=== PATIENT | female | born 1995 | race Caucasian/White ===

== ENCOUNTER 2017-03-13 16:16 | Emergency (ER) | payer BC, OTHER ==
[2017-03-13] MEDS ORDERED: KETOROLAC 30 MG/ML VIAL IVP ONE (16:51)
[2017-03-13] MEDS ORDERED: ONDANSETRON HCL IV 4 MG/2 ML VIAL IV ONE (16:51)
[2017-03-13] MEDS ORDERED: 0.9 % SODIUM CHLORIDE 1,000 ML BAG IV ONE (16:51)
[2017-03-13 17:28] LABS: HEMOGLOBIN 11.2 gm/dl (11.6-16.0); MEAN CELL VOLUME 75.9 fl (81-97); MEAN CORPUSCULAR HEMOGLOBIN 23.6 pg (27-33); MEAN CORPUSCULAR HGB CONC 31.1 g/dl (32-36); MEAN PLATELET VOLUME 8.9 fl (7.4-10.4); PLATELET COUNT 277 K/uL (130-400); RED BLOOD COUNT 4.74 M/uL (3.80-5.40); RED CELL DISTRIBUTION WIDTH 17.3 % (11.5-14.5); URINE APPEARANCE CLEAR; URINE BILIRUBIN NEGATIVE (NEGATIVE); URINE BLOOD MODERATE (NEGATIVE); URINE COLOR YELLOW; URINE GLUCOSE (UA) NEGATIVE (NEGATIVE); URINE KETONE NEGATIVE (NEGATIVE); URINE LEUKOCYTE ESTERASE NEGATIVE (NEGATIVE); URINE NITRITE NEGATIVE (NEGATIVE); URINE PROTEIN NEGATIVE (NEGATIVE); URINE UROBILINOGEN 0.2 E.U./dL (0.20 - 1.00); WHITE BLOOD COUNT W/O DIFF 6.2 K/uL (4.2-12.2)
[2017-03-13 17:31] LABS: HCG,QUALITATIVE URINE NEGATIVE (NEGATIVE)
[2017-03-13 17:38] LABS: ALB/GLOB RATIO 1.3 (1.1-1.8); ALBUMIN 4.4 gm/dL (3.5-5.0); ALKALINE PHOSPHATASE 95 U/L (38-126); ALT/SGPT 45 U/L (9-52); ANION GAP 9.2 (7-16); AST/SGOT 33 U/L (14-36); BILIRUBIN,TOTAL 0.36 mg/dL (0.2-1.3); BLOOD UREA NITROGEN 13 mg/dL (7-17); CARBON DIOXIDE 24.8 mmol/L (22-30); CREATININE 0.7 mg/dL (0.52-1.04); EST GLOMERULAR FILTRATION RATE > 60 ml/min; GLUCOSE,RANDOM 83 mg/dL (70-110); LIPASE 70 U/L (23-300); TOTAL PROTEIN 7.9 gm/dL (6.3-8.2)
[2017-03-13 17:39] LABS: URINE BACTERIA 1+; URINE RBC 16 - 25 (NONE SEEN); URINE SQUAMOUS EPITHELIAL CELL 16 - 20 /hpf; URINE WBC 0 - 2 (0-2/hpf)
[2017-03-13] MEDS ORDERED: HYDROMORPHONE HCL 1 MG/ML CPJ IVP ONE (17:45)
--- NOTE | 2017-03-13 17:54 | Emergency Department Record ---
History of Present Illness - General Chief Complaint: Abdominal Pain Stated Complaint: ABD PAIN Time Seen by Provider: 03/13/17 16:44 Source: Patient Mode of Arrival: Ambulatory Limitations: No limitations - History of Present Illness Initial Comments: pt has had n/v/d and abd pain for 3 days. pn waxes and wanes and is severe at times. pt has been taking antidiarrheal medication. pt works at an extended care facility. MD Complaint: Abdominal pain Onset/Timin -: Days(s) Location: Periumbilical Radiation: None Migration to: No migration Severity: Moderate Quality: Cramping Consistency: Constant Improves With: Bowel movement Worsens With: Eating Context: Other Associated Symptoms: Diarrhea, Nausea, Vomiting - Related Data LMP (females 10-50): Current Patient : No Home Medications Medication Instructions Recorded Confirmed Last Taken Dextroamphetamine/Amphetamine 20 mg PO DAILY 03/13/17 03/13/17 03/13/17 [Adderall 20 mg Tablet] Modafinil [Provigil] 200 mg PO DAILY 03/13/17 03/13/17 03/13/17 Montelukast Sodium [Singulair] 10 mg PO DAILY 03/13/17 03/13/17 03/13/17 Omeprazole/Sodium Bicarbonate 40 mg PO BID 03/13/17 03/13/17 03/13/17 [Zegerid 40 mg Capsule] Sertraline HCl [Zoloft] 50 mg PO DAILY 03/13/17 03/13/17 03/13/17 Previous Rx's Medication Instructions Recorded Promethazine HCl [Phenergan] 12.5 mg PO BID #10 tablet 03/13/17 Allergies Allergy/AdvReac Type Severity Reaction Status Date / Time amoxicillin [From Augmentin] Allergy HIVES Verified 03/13/17 16:48 azithromycin Allergy HIVES Verified 03/13/17 16:48 clavulanic acid Allergy HIVES Verified 03/13/17 16:48 [From Augmentin] erythromycin base Allergy HIVES Verified 03/13/17 16:48 Penicillins Allergy HIVES Verified 03/13/17 16:48 sulfamethoxazole Allergy HIVES Verified 03/13/17 16:48 [From Bactrim] trimethoprim [From Bactrim] Allergy HIVES Verified 03/13/17 16:48 Travel Screening - Travel/Exposure Within Last 30 Days Have you traveled within the last 30 days?: No - Travel/Exposure Within Last Year Have you traveled outside the [place] in the last year?: No - Additonal Travel Details Have you been exposed to anyone with a communicable illness?: No - Travel Symptoms Symptom Screening: None Review of Systems Reviewed: No additional complaints except as noted below Constitutional: Reports: As per HPI. Denies: Chills, Fever, Malaise, Night sweats, Weakness, Weight change Eyes: Reports: As per HPI. Denies: Eye discharge, Eye pain, Photophobia, Vision change ENT: Reports: As per HPI. Denies: Congestion, Dental pain, Ear pain, Epistaxis , Hearing loss, Throat pain Respiratory: Reports: As per HPI. Denies: Cough, Dyspnea, Hemoptysis, Stridor, Wheezes Cardiovascular: Reports: As per HPI. Denies: Arrhythmia, Chest pain, Dyspnea on exertion, Edema, Murmurs, Orthopnea, Palpitations, Paroxysmal nocturnal dyspnea, Rheumatic Fever, Syncope Endocrine: Reports: As per HPI. Denies: Fatigue, Heat or cold intolerance, Polydipsia, Polyuria Gastrointestinal: Reports: As per HPI. Denies: Abdominal pain, Constipation, Diarrhea, Hematemesis, Hematochezia, Melena, Nausea, Vomiting Genitourinary: Reports: As per HPI. Denies: Abnormal menses, Discharge, Dyspareunia, Dysuria, Frequency, Hematuria, Incontinence, Retention, Urgency Musculoskeletal: Reports: As per HPI. Denies: Arthralgia, Back pain, Gout, Joint swelling, Myalgia, Neck pain Skin: Reports: As per HPI. Denies: Bruising, Change in color, Change in hair/ nails, Lesions, Pruritus, Rash Neurological: Reports: As per HPI. Denies: Abnormal gait, Confusion, Headache, Numbness, Paresthesias, Seizure, Tingling, Tremors, Vertigo, Weakness Psychiatric: Reports: As per HPI. Denies: Anxiety, Auditory hallucinations, Depression, Homicidal thoughts, Suicidal thoughts, Visual hallucinations Hematological/Lymphatic: Reports: As per HPI. Denies: Anemia, Blood Clots, Easy bleeding, Easy bruising, Swollen glands Past Medical History - SOCIAL HISTORY Smoking Status: Never smoker Alcohol Use: Rare Drug Use: None - RESPIRATORY Hx Respiratory Disorders: Yes Hx Asthma: Yes Comment:: Sports induced Asthma Highly allergic - CARDIOVASCULAR Hx Cardio Disorders: No - NEURO Hx Neuro Disorders: Yes Hx Headaches: Yes Comment:: Narcolepsy - GI Hx GI Disorders: Yes Hx Reflux: Yes Hx Irritable Bowel: Yes - Hx Genitourinary Disorders: No - ENDOCRINE Hx Endocrine Disorders: No Hx Diabetes: No Hx Thyroid Disease: No - MUSCULOSKELETAL Hx Arthritis: No - PSYCH Hx Psych Problems: No - HEMATOLOGY/ONCOLOGY Hx Hematology/Oncology Disorders: No Family Medical History Any Significant Family History?: Yes Hx Cancer: Grandparents Hx Heart Disease: Grandparents Physical Exam - General General Appearance: Alert, Oriented x3, Cooperative, Mild distress - Head Head exam: Normal inspection - Eye Eye exam: Normal appearance, PERRL, EOMI Pupils: Normal accommodation - ENT ENT exam: Normal exam, Mucous membranes moist, Normal external ear exam, Normal orophraynx, TM's normal bilaterally Ear exam: Normal external inspection. negative: External canal tenderness Nasal Exam: Normal inspection. negative: Discharge, Sinus tenderness Mouth exam: Normal external inspection, Tongue normal Teeth exam: Normal inspection. negative: Dental caries Throat exam: Normal inspection. negative: Tonsillar erythema, Tonsillar exudate - Neck Neck exam: Normal inspection, Full ROM. negative: Tenderness - Respiratory Respiratory exam: Normal lung sounds bilaterally. negative: Respiratory distress - Cardiovascular Cardiovascular Exam: Regular rate, Normal rhythm, Normal heart sounds - GI/Abdominal GI/Abdominal exam: Soft, Normal bowel sounds, Tenderness - Rectal Rectal exam: Deferred - exam: Deferred - Extremities Extremities exam: Normal inspection, Full ROM, Normal capillary refill. negative: Tenderness - Back Back exam: Reports: Normal inspection, Full ROM. Denies: Muscle spasm, Rash noted, Tenderness - Neurological Neurological exam: Alert, CN II-XII intact, Normal gait, Oriented X3 - Psychiatric Psychiatric exam: Normal affect, Normal mood - Skin Skin exam: Dry, Intact, Normal color, Warm Course Vital Signs 03/13/17 16:21 Temperature 99 F Pulse Rate 84 Respiratory 18 Rate Blood Pressure 135/85 Pulse Ox 100 - Reevaluation(s) Reevaluation #1: 03/13/17 19:05 pt feels better Medical Decision Making - Lab Data Result diagrams: 03/13/17 17:15 03/13/17 17:15 Lab Results 03/13/17 03/13/17 03/13/17 Range/Units 17:15 17:15 17:15 WBC 6.2 (4.2-12.2) K/uL RBC 4.74 (3.80-5.40) M/uL Hgb 11.2 L (11.6-16.0) gm/dl Hct 36.0 (35.0-47.0) % MCV 75.9 L (81-97) fl MCH 23.6 L (27-33) pg MCHC 31.1 L (32-36) g/dl RDW 17.3 H (11.5-14.5) % Plt Count 277 (130-400) K/uL MPV 8.9 (7.4-10.4) fl Eosinophils % Not Reportable Basophils % Not Reportable Sodium 140 (136-145) mmol/L Potassium 3.4 L (3.5-5.1) mmol/L Chloride 106 (98-107) mmol/L Carbon Dioxide 24.8 (22-30) mmol/L Anion Gap 9.2 (7-16) BUN 13 (7-17) mg/dL Creatinine 0.7 (0.52-1.04) mg/dL Estimated GFR > 60 ml/min Random Glucose 83 (70-110) mg/dL Calcium 8.9 (8.5-10.1) mg/dL Total Bilirubin 0.36 (0.2-1.3) mg/dL AST 33 (14-36) U/L ALT 45 (9-52) U/L Alkaline Phosphatase 95 (38-126) U/L Total Protein 7.9 (6.3-8.2) gm/dL Albumin 4.4 (3.5-5.0) gm/dL Globulin 3.5 (1.4-4.8) gm/dL Albumin/Globulin Ratio 1.3 (1.1-1.8) Lipase 70 (23-300) U/L Urine Color Yellow Urine Appearance Clear Urine pH 6.5 (5.0-8.0) Ur Specific [place] 1.020 (1.002-1.030) Urine Protein Negative (NEGATIVE) Urine Glucose (UA) Negative (NEGATIVE) Urine Ketones Negative (NEGATIVE) Urine Blood Moderate (NEGATIVE) Urine Nitrite Negative (NEGATIVE) Urine Bilirubin Negative (NEGATIVE) Urine Urobilinogen 0.2 (0.20 - 1.00) E.U./dL Ur Leukocyte Esterase Negative (NEGATIVE) Urine RBC 16 - 25 (NONE SEEN) Urine WBC 0 - 2 (0-2/hpf) U Non-Squamous Epi Cells 16 - 20 /hpf Urine Bacteria 1+ Urine HCG, Qual Negative (NEGATIVE) Disposition Disposition: Discharge Clinical Impression: Vomiting Qualifiers: Vomiting type: unspecified Vomiting Intractability: non-intractable Nausea presence: with nausea Qualified Code(s): R11.2 - Nausea with vomiting, unspecified Diarrhea Qualifiers: Diarrhea type: unspecified type Qualified Code(s): R19.7 - Diarrhea, unspecified Abdominal pain Qualifiers: Abdominal location: lower abdomen, unspecified Qualified Code(s): R10.30 - Lower abdominal pain, unspecified Disposition: Home, Self-Care Condition: (1) Good Instructions: Acute Nausea and Vomiting (ED), Acute Diarrhea (ED), Abdominal Pain (ED) Additional Instructions: follow up with family doctor. return sooner if worse. push fluids Prescriptions: Promethazine HCl [Phenergan] 12.5 mg PO BID #10 tablet Forms: Patient Portal Access
[2017-03-13] MEDS ORDERED: DICYCLOMINE HCL 10 MG/ML AMPUL IM ONE (19:06)
[2017-03-13] MEDS ORDERED: PROMETHAZINE HCL 25 MG/ML VIAL IVP ONE (19:07)
--- NOTE | 2017-03-16 08:54 | CT SCAN REPORT ---
EXAM: CT OF THE ABDOMEN AND PELVIS WITHOUT CONTRAST HISTORY: LOWER ABDOMINAL PAIN. TECHNIQUE: Sequential axial images were obtained from the diaphragms through the ischiorectal fossa without intravenous or oral contrast administration. FINDINGS: The visualized lung bases appear normal. The nonopacified liver, gallbladder, pancreas, and spleen appear normal. The adrenal glands and kidneys appear normal. No CT findings suggestive of obstructive uropathy. No evidence of bowel obstruction. The appendix is visualized and appears normal. There is liquid stool throughout the colon. No evidence of free air. No gross abnormalities within the urinary bladder. The osseous structures are normal. IMPRESSION: THE APPENDIX IS VISUALIZED AND APPEARS NORMAL. LIQUIFIED STOOL IN THE COLON. NO EVIDENCE OF OBSTRUCTION. NO OBSTRUCTIVE UROPATHY. JOB NUMBER: [id number] MTDD
== END 2017-03-13 19:40 | disposition home or self-care (01) ==
LOC: ER 16:16
DX: R10.33 Periumbilical pain (principal); R11.2 Nausea with vomiting, unspecified; R19.7 Diarrhea, unspecified
CPT/HCPCS: 99284 ×2; 96374; 96372; 96375; 96361; 83690; 80053; 81001; 81025; 85027; 74176; J1885; J2405; J1170; J2550; J7030

== ENCOUNTER 2017-04-15 19:56 | Emergency (ER) | payer OTHER ==
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
[2017-04-15] MEDS: NAPROXEN 250 MG TABLET PO ONE ×2 (21:08→21:45)
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
== END 2017-04-15 21:49 | disposition home or self-care (01) ==
LOC: ER 19:56
DX: S60.012A Contusion of left thumb without damage to nail, initial encounter (principal); S90.01XA Contusion of right ankle, initial encounter; S10.93XA Contusion of unspecified part of neck, initial encounter; V89.2XXA Person injured in unspecified motor-vehicle accident, traffic, initial encounter
CPT/HCPCS: 72125; 99283; 99284

== ENCOUNTER 2017-05-18 07:04 | Day surgery (SDC) | payer OTHER ==
[~2017-05-18 07:04] MED LIST: ACETAMINOPHEN 1,000 MG/100 ML BTL IV ONE; FAMOTIDINE 20MG TABLET PO ONE; MECLIZINE 25 MG TABLET PO ONE; METOCLOPRAMIDE 10 MG TABLET PO ONE
[2017-05-18] MEDS ORDERED: HYDROCODONE/APAP 5/325MG TABLET PO ONE (13:54)
[2017-05-18] MEDS ORDERED: HYDROMORPHONE HCL 2 MG/ML VIAL IV ONE (13:54)
[2017-05-18] MEDS ORDERED: ROCURONIUM BROMIDE 50MG/5ML VIAL IV ONE (14:00)
[2017-05-18] MEDS ORDERED: MIDAZOLAM HCL 2MG/2ML VIAL IV ONE (14:00)
[2017-05-18] MEDS ORDERED: KETOROLAC 30 MG/ML VIAL IVP ONE (14:00)
[2017-05-18] MEDS ORDERED: DEXAMETHASONE 4 MG/ML 1ML VIAL IVP ONE (14:00)
[2017-05-18] MEDS ORDERED: SUGAMMADEX SODIUM 200 MG/2 ML VIAL IV ONE (14:00)
[2017-05-18] MEDS ORDERED: LIDOCAINE 2% MDV (20MG/ML) 20ML VIAL IV ONE (14:00)
[2017-05-18] MEDS ORDERED: ONDANSETRON HCL IV 4 MG/2 ML VIAL IVP ONE (14:00)
[2017-05-18] MEDS ORDERED: SEVOFLURANE 250 ML INH ONE (14:00)
[2017-05-18] MEDS ORDERED: MORPHINE SULFATE 5 MG/ML PFS IVP ONE (14:00)
[2017-05-18] MEDS ORDERED: PROPOFOL 10 MG/ML VIAL IV ONE (14:00)
[2017-05-18] MEDS ORDERED: LABETALOL HCL 5MG/ML, 20ML VIAL IVPB ONE (14:00)
[2017-05-18] MEDS ORDERED: BUPIVACAINE 0.25% W/EPI MPF 30ML VIAL IVP ONE (14:46)
--- NOTE | 2017-05-21 10:40 | Operative Note ---
DATE OF SURGERY: 05/18/2017 Surgeon: Juan Lambert DO PREOPERATIVE DIAGNOSIS: Cholelithiasis, chronic cholecystitis. POSTOPERATIVE DIAGNOSIS: Cholelithiasis, chronic cholecystitis. OPERATION: Laparoscopic cholecystectomy. Indication: The patient is a 21-year-old female who is having ongoing right subcostal postprandial pain. Imaging studies did reveal cholelithiasis without evidence of acute cholecystitis. We did discuss cholecystectomy versus medical management. She desired surgical intervention. Risks include but are not limited to bleeding, infection, ductal injury, possible conversion to open, postoperative bile leak. She understood this fully. Thereafter, consent signed, questions answered. PROCEDURE: The patient was taken to the operating room and placed in a supine position. General anesthesia was administered per the department of anesthesia. The patient's abdomen was prepped and draped in the usual fashion. The infraumbilical region was anesthetized with a total of 5 mL of 0.25% Sensorcaine with epinephrine. A 2 cm infraumbilical incision was made. This was carried down bluntly to the anterior rectus fascia. This was incised. Trent clamps were placed on the fascial edges and brought up into the wound. Stay sutures of 0 Vicryl were placed. Posterior rectus sheath was identified and incised. The peritoneal cavity was entered bluntly. At this time a 10 mm blunt Mily port was placed. Adequate pneumoperitoneum was established. Under direct visualization, additional 5 mm epigastric and two 5 mm right subcostal ports were placed. The patient was rotated to reverse Trendelenburg with rotation to the left. The gallbladder was identified and retracted in a cephalad and lateral direction over the angle of Calot. The hepatocystic triangle was thoroughly dissected out. There was no aberrant anatomy, no posterior ductal structures. The cystic duct and cystic artery were clearly identified. The cystic artery was taken down with the Mika harmonic. The cystic duct was triply clipped and cut in a standard fashion. Gallbladder was then taken off the liver bed with Mika harmonic. This was extracted infraumbilically. Right upper quadrant was rechecked and found to be hemostatic. No bleeding. No bile leak. No bowel injury noted. The patient was leveled out. The pneumoperitoneum was released. All ports were removed. The fascia was closed with 0 Vicryl in a [id number] fashion. The skin at all 4 ports was closed with 4-0 Vicryl. She was taken to the recovery room in satisfactory condition. FINDINGS AT THE TIME OF SURGERY: Chronic cholecystitis. Of note, the patient did have a distended, thickened gallbladder with a thickened wall, cholelithiasis consistent with chronic cholecystitis. CC: Dr. Gail PEREZ
== END 2017-05-18 11:35 | disposition home or self-care (01) ==
LOC: SUR 07:04
PROVIDERS: ATTEND Surgery
DX: K80.44 Calculus of bile duct with chronic cholecystitis without obstruction (principal); G47.419 Narcolepsy without cataplexy; F41.8 Other specified anxiety disorders
CPT/HCPCS: 81025; 47562; 00790; J1885; J2405; J1170; J2270; J3490

== ENCOUNTER 2017-12-18 07:21 | Emergency (ER) | payer OTHER ==
[2017-12-18] MEDS ORDERED: 0.9 % SODIUM CHLORIDE 1,000 ML BAG IV ONE (07:31)
[2017-12-18] MEDS ORDERED: ONDANSETRON HCL IV 4 MG/2 ML VIAL IV ONE (07:31)
[2017-12-18] MEDS ORDERED: ACETAMINOPHEN 1,000 MG/100 ML BTL IVPB ONE (07:37)
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
[2017-12-18] MEDS ORDERED: PANTOPRAZOLE SODIUM IV 40 MG VIAL IVP ONE (07:38)
[2017-12-18] MEDS ORDERED: ONDANSETRON 4 MG ODT TABLET SL ONE (08:03)
[2017-12-18] MEDS ORDERED: KETOROLAC 30 MG/ML VIAL IM ONE (08:05)
[2017-12-18 08:30] LABS: BASO % 0.5 % (0-6); EOS % 1.7 % (0-6); GRAN % 52.9 % (47-80); HEMATOCRIT 35.8 % (35.0-47.0); HEMOGLOBIN 10.7 gm/dl (11.6-16.0); LYMPH % 34.3 % (16-45); MEAN CORPUSCULAR HGB CONC 29.9 g/dl (32-36); MEAN PLATELET VOLUME 9.4 fl (7.4-10.4); MONO % 10.6 % (0-9); PLATELET COUNT 308 K/uL (130-400); RED BLOOD COUNT 4.65 M/uL (3.80-5.40); RED CELL DISTRIBUTION WIDTH 16.1 % (11.5-14.5); WHITE BLOOD COUNT W/O DIFF 5.8 K/uL (4.2-12.2)
[2017-12-18 08:39] LABS: BILIRUBIN,TOTAL < 0.20 mg/dL (0.2-1.0); BLOOD UREA NITROGEN 14 mg/dL (6-20); CREATININE 0.5 mg/dL (0.5-0.9); EST GLOMERULAR FILTRATION RATE > 60 mL/min
[2017-12-18 08:42] LABS: GLUCOSE,RANDOM 89 mg/dL (74-109)
[2017-12-18 08:44] LABS: ALT/SGPT 21 U/L (<33); AST/SGOT 15 U/L (10.0-35.0)
[2017-12-18 08:45] LABS: ALB/GLOB RATIO 1.5 (1.1-1.8); ALBUMIN 4.2 g/dL (4.0-5.0); ALKALINE PHOSPHATASE 81 U/L (35-104); LIPASE 41 U/L (13-60)
[2017-12-18 09:11] LABS: URINE APPEARANCE CLOUDY; URINE BILIRUBIN NEGATIVE (NEGATIVE); URINE BLOOD NEGATIVE (NEGATIVE); URINE COLOR YELLOW; URINE GLUCOSE (UA) NEGATIVE (NEGATIVE); URINE KETONE NEGATIVE (NEGATIVE); URINE LEUKOCYTE ESTERASE NEGATIVE (NEGATIVE); URINE NITRITE NEGATIVE (NEGATIVE); URINE PROTEIN TRACE (NEGATIVE); URINE UROBILINOGEN 0.2 E.U./dL (0.20 - 1.00)
[2017-12-18] MEDS ORDERED: 0.9 % SODIUM CHLORIDE 1000ML 1,000 ML IV ONE (09:23)
[2017-12-18] MEDS ORDERED: MORPHINE SULFATE 5 MG/ML PFS IVP ONE (10:23)
[2017-12-18] MEDS ORDERED: FENTANYL PF 100MCG/2ML VIAL IVP ONE (10:26)
--- NOTE | 2017-12-19 21:35 | CT SCAN REPORT ---
EXAM: CT SCAN ABDOMEN/PELVIS W CONTRAST HISTORY: ABDOMINAL TENDERNESS IN THE MID ABDOMEN AND RIGHT LOWER QUADRANT WITH NAUSEA AND LOW-GRADE FEVER FOR THREE DAYS. CHOLECYSTECTOMY. TECHNIQUE: Axial CT scan of the abdomen and pelvis performed following both oral or IV contrast administration utilizing a dose of 100 mL of Omnipaque-300 as the IV contrast. COMPARISON: CT abdomen/pelvis without contrast 03/13/17. FINDINGS: Gallbladder not identified consistent with the surgical history. No definite hepatic, splenic, adrenal, pancreatic, or renal mass identified. Oral contrast given has passed throughout the small bowel and into the proximal colon with no small bowel obstruction evident. Appendix appears negative with no appendicitis evident. Minor dependent atelectasis in both lung bases posteriorly. No free intraperitoneal air or free intraperitoneal fluid identified. There is some mild spurring posteriorly at the L1-2 interspace. This was present previously as well. Note is made that the urinary bladder is relatively distended. IMPRESSION: 1. POST-OP CHOLECYSTECTOMY. 2. NO APPENDICITIS SEEN. NO FREE AIR OR FREE FLUID EVIDENT. 3. SOME MILD SPURRING POSTERIORLY AT THE L1-2 INTERSPACE. 4. RELATIVELY DISTENDED URINARY BLADDER. JOB NUMBER: [id number] [facility]
== END 2017-12-18 12:15 | disposition home or self-care (01) ==
LOC: ER 07:21
DX: R10.84 Generalized abdominal pain (principal); D50.9 Iron deficiency anemia, unspecified; R11.2 Nausea with vomiting, unspecified
CPT/HCPCS: 99284 ×2; 96372; 96365; 96375; 96361; 83690; 85025; 80053; 81003; 84443; 84703; 74177; Q9967; J1885; J3010; C9113; J7030

== ENCOUNTER 2018-12-21 21:41 | Emergency (ER) | payer BC ==
[2018-12-21] MEDS ORDERED: ONDANSETRON HCL IV 4 MG/2 ML VIAL IVP ONE (21:49)
[2018-12-21] MEDS ORDERED: KETOROLAC 30 MG/ML VIAL IVP ONE (21:49)
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
[2018-12-21] MEDS ORDERED: 0.9 % SODIUM CHLORIDE 1000ML 1,000 ML IV SCH (22:00)
[2018-12-21] MEDS: ONDANSETRON 4 MG ODT TABLET SL ONE (23:09)
[2018-12-21] MEDS: KETOROLAC 60 MG/2 ML VIAL IM STA (23:09)
[2018-12-21 23:17] LABS: BASO % 0.4 % (0-6); EOS % 1.3 % (0-6); GRAN % 72.6 % (47-80); HEMATOCRIT 35.9 % (35.0-47.0); HEMOGLOBIN 10.7 gm/dl (11.6-16.0); LYMPH % 18.1 % (16-45); MEAN CELL VOLUME 76.9 fl (81-97); MEAN CORPUSCULAR HEMOGLOBIN 22.9 pg (27-33); MEAN CORPUSCULAR HGB CONC 29.8 g/dl (32-36); MEAN PLATELET VOLUME 8.9 fl (7.4-10.4); MONO % 7.6 % (0-9); PLATELET COUNT 348 K/uL (130-400); RED BLOOD COUNT 4.67 M/uL (3.80-5.40); RED CELL DISTRIBUTION WIDTH 17.3 % (11.5-14.5); WHITE BLOOD COUNT W/O DIFF 11.7 K/uL (4.2-12.2)
[2018-12-21 23:27] LABS: BILIRUBIN,TOTAL < 0.20 mg/dL (0.2-1.0); BLOOD UREA NITROGEN 7 mg/dL (6-20); CREATININE 0.6 mg/dL (0.5-0.9); EST GLOMERULAR FILTRATION RATE > 60 mL/min
[2018-12-21 23:28] LABS: LIPASE 40 U/L (13-60); TOTAL PROTEIN 7.3 g/dL (6.6-8.7)
[2018-12-21 23:30] LABS: GLUCOSE,RANDOM 95 mg/dL (74-109)
[2018-12-21 23:32] LABS: ALB/GLOB RATIO 1.4 (1.1-1.8); ALBUMIN 4.2 g/dL (4.0-5.0); ALKALINE PHOSPHATASE 106 U/L (35-104); ALT/SGPT 17 U/L (<33); AST/SGOT 15 U/L (10.0-35.0)
[2018-12-21 23:35] LABS: URINE APPEARANCE CLEAR; URINE BILIRUBIN NEGATIVE (NEGATIVE); URINE BLOOD NEGATIVE (NEGATIVE); URINE COLOR YELLOW; URINE GLUCOSE (UA) NEGATIVE (NEGATIVE); URINE KETONE TRACE (NEGATIVE); URINE LEUKOCYTE ESTERASE NEGATIVE (NEGATIVE); URINE NITRITE NEGATIVE (NEGATIVE); URINE PROTEIN NEGATIVE (NEGATIVE); URINE UROBILINOGEN 0.2 E.U./dL (0.20 - 1.00)
[2018-12-21 23:37] LABS: HCG,QUALITATIVE URINE NEGATIVE (NEGATIVE)
[2018-12-22] MEDS: CIPROFLOXACIN HCL 500 MG TABLET PO ONE (00:51)
[2018-12-22] MEDS: PREDNISONE 20 MG TAB PO ONE (00:51)
== END 2018-12-22 01:02 | disposition home or self-care (01) ==
LOC: ER 21:41
DX: K52.9 Noninfective gastroenteritis and colitis, unspecified (principal); R10.32 Left lower quadrant pain; R11.0 Nausea
CPT/HCPCS: 74176; 80053; 81003; 81025; 83690; 85025; 96372; 99283; 99284; J1885; J7512

== ENCOUNTER 2019-06-06 09:14 | Observation (INO) | payer BC ==
[2019-06-06] MEDS ORDERED: KETOROLAC 30 MG/ML VIAL IVP ONE (09:45)
[2019-06-06] MEDS ORDERED: 0.9 % SODIUM CHLORIDE 1,000 ML BAG IV ONE (09:45)
[2019-06-06 10:07] LABS: ABSOLUTE NEUTROPHIL COUNT 11.53; HEMATOCRIT 34.1 % (35.0-47.0); HEMOGLOBIN 9.9 gm/dl (11.6-16.0); MEAN PLATELET VOLUME 8.8 fl (7.4-10.4); PLATELET COUNT 416 K/uL (130-400); RED BLOOD COUNT 4.61 M/uL (3.80-5.40); RED CELL DISTRIBUTION WIDTH 17.3 % (11.5-14.5); WHITE BLOOD COUNT W/O DIFF 14.4 K/uL (4.2-12.2)
[2019-06-06 10:15] LABS: MEAN CORPUSCULAR HEMOGLOBIN 21.4 pg (27-33)
[2019-06-06 10:18] LABS: BLOOD UREA NITROGEN 9 mg/dL (6-20); CREATININE 0.6 mg/dL (0.5-0.9); EST GLOMERULAR FILTRATION RATE > 60 mL/min
[2019-06-06 10:19] LABS: LIPASE 51 U/L (13-60); TOTAL PROTEIN 7.9 g/dL (6.6-8.7)
[2019-06-06 10:19] LABS: URINE APPEARANCE CLEAR; URINE BILIRUBIN NEGATIVE (NEGATIVE); URINE BLOOD NEGATIVE (NEGATIVE); URINE COLOR YELLOW; URINE GLUCOSE (UA) NEGATIVE (NEGATIVE); URINE KETONE NEGATIVE (NEGATIVE); URINE LEUKOCYTE ESTERASE NEGATIVE (NEGATIVE); URINE NITRITE NEGATIVE (NEGATIVE); URINE PROTEIN NEGATIVE (NEGATIVE); URINE UROBILINOGEN 0.2 E.U./dL (0.20 - 1.00)
[2019-06-06 10:21] LABS: GLUCOSE,RANDOM 98 mg/dL (74-109)
[2019-06-06 10:22] LABS: HCG,QUALITATIVE URINE NEGATIVE (NEGATIVE)
[2019-06-06 10:23] LABS: ALT/SGPT 20 U/L (<33)
[2019-06-06 10:24] LABS: ALB/GLOB RATIO 1.3 (1.1-1.8); ALBUMIN 4.5 g/dL (4.0-5.0); ALKALINE PHOSPHATASE 108 U/L (35-104); AST/SGOT 9 U/L (10.0-35.0)
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
[2019-06-06 13:16] LABS: PARTIAL THROMBOPLASTIN TIME 29.6 SECONDS (24.5-39.1)
[2019-06-06] MEDS ORDERED: APIXABAN 5MG TABLET PO ONE (13:47)
[2019-06-06] MEDS ORDERED: ZYVOX (LINEZOLID) 600MG/300 ML 600 MG/300 ML BAG IVPB ONE (13:48)
[2019-06-06] MEDS ORDERED: PROMETHAZINE HCL 6.25 MG in 0.9 % SODIUM CHLORIDE 100ML 100 ML IVPB ONE (15:17)
[2019-06-06] MEDS ORDERED: HYDROMORPHONE HCL 2 MG/ML VIAL IVP PRN (15:37)
[2019-06-06] MEDS ORDERED: PROMETHAZINE HCL 6.25 MG in 0.9 % SODIUM CHLORIDE 100ML 100 ML IVPB PRN (16:07)
[2019-06-06] MEDS ORDERED: HYOSCYAMINE SULFATE ODT 0.125 MG TAB.SUBL SL PRN (16:07)
[2019-06-06] MEDS: DIPHENHYDRAMINE HCL 50 MG/ML VIAL IVP PRN (17:28)
[2019-06-06] MEDS: ACETAMINOPHEN 500 MG TABLET PO PRN (17:31)
[2019-06-06] MEDS: APIXABAN 5MG TABLET PO SCH (21:33)
[2019-06-06] MEDS: PANTOPRAZOLE SODIUM 40 MG TABLET PO SCH (21:34)
[2019-06-07] MEDS: ZYVOX (LINEZOLID) 600MG/300 ML 600 MG/300 ML BAG IVPB SCH ×2 (01:02→14:03)
[2019-06-07] MEDS: DIPHENHYDRAMINE HCL 50 MG/ML VIAL IVP PRN ×2 (01:35→15:22)
--- NOTE | 2019-06-07 05:58 | CT ANGIOGRAM REPORT ---
EXAM: CT ANGIOGRAM OF THE CHEST WITH CONTRAST HISTORY: PAIN. PATIENT HAS RIGHT UPPER QUADRANT PAIN THAT IS WORSE WITH BREATHING. SYMPTOMS FOR THREE DAYS. TECHNIQUE: CT angiogram of the chest and pulmonary arteries was obtained with 100 ml Omnipaque 350. Comparison: None. Quality of opacification of the pulmonary arteries is suboptimal. FINDINGS: The pulmonary artery has normal caliber. There appears to be an acute obstructing embolus in the descending branch of the right lower lobe of the pulmonary artery consistent with embolus. The thoracic aorta shows no aneurysm or dissection. There are some nonspecific mildly prominent subcarinal lymph nodes. No other mediastinal or hilar lymphadenopathy present. The airway is clear. The heart is normal size without pericardial effusion. The upper lobes of the lungs are clear. There is a small right effusion. There are interstitial type infiltrates and atelectatic changes in both lower lobes. The axilla shows no adenopathy. No other soft tissue findings are evident. The spine is unremarkable. The sternum is unremarkable. The ribs, clavicles, and scapula appear unremarkable also. IMPRESSION: 1. FINDINGS SUGGEST AN ACUTE PULMONARY EMBOLUS IN THE DESCENDING BRANCH OF THE RIGHT LOWER LOBE. 2. NONSPECIFIC SUBCARINAL LYMPHADENOPATHY. 3. SMALL RIGHT PLEURAL EFFUSION WITH SUGGESTION OF BILATERAL LOWER LOBE INFILTRATES AND ATELECTASIS. JOB NUMBER: [id number] [facility]
[2019-06-07] MEDS ORDERED: HYOSCYAMINE SULFATE ODT 0.125 MG TAB.SUBL SL PRN (08:15)
--- NOTE | 2019-06-07 08:23 | History & Physical ---
History of Present Illness - Date of Service Date of Service for History & Physical: 06/07/19 - History of Present Illness Admitting Diagnosis: pulmonary embolism, pneumonia, pleural effusion History of Present Illness: 06/05/19 Pt presented to [facility] ER for right upper quad abd pain/right lower chest pain. worsening with inspiration. Denies smoking, BC, recent travel or surgeries. PMH autoimmune issues (RA?), allergies, food sensitivities Temp 99.5, HR 99, BP 132/81. RR 18, 99% RA. WBC 14.4, Hgb 9.9, Hct 34.1, MCV 74, MCHC 29, Plt 416 ESR 54 D-dimer 1.53 PT 10, INR 1, aPTT 29.6 Na 139, K 3.9, Cl 101, CO2 24, Anion Gap 14, BUN 9, Cr 0.6, GFR>60, glucose 98, LFTs wnl, Lactic Acid 1.1, Lipase 51 UA negative, UP neg CTA shows PE, PNA, and pleural effusion, Hestia Criteria 1 r/t concurrent PNA, admission obs Eliquis 10mg BID started for PE tx, will continue for 7 days and then transition to 5mg BID. Pt reports numerous antibiotic allergies, started Zyvox 600mg IVPB BID for secondary PNA. 06/07/19 pt resting in bed, no acute distress, mother and father at bedside. Pt up to restroom with no distress. Lungs CTA, reports inspiration pain has decreased since addition of abx. Pt has nausea since admission, denies nausea prior to admission. Currently eating apple sauce with no difficulty and has PRN nausea meds available. pt is tolerating anticoagulation and IV abx but had fever last night. Continue IV ABX until nausea decreased and PO intake improves. Pt req excendrin for HARRIS, declined this r/t ASA content and discouraged all NSAID use while on Eliquis. ALDO US ordered to r/o DVTs as pt reports she was on a plane within the past 30 days. Flew to and from [facility], arriving home 05/13/19. Denies calf pain since trip. pt needs to be fever free for 24 hours for d/c, f/u PCP. MICR indicates pt has not had PNA vaccination, pt to f/u with PCP. PCP [facility] Travel Screening - Travel/Exposure Within Last 30 Days Have you traveled within the last 30 days?: No - Travel/Exposure Within Last Year Have you traveled outside the [place] in the last year?: No - Additonal Travel Details Have you been exposed to anyone with a communicable illness?: No - Travel Symptoms Symptom Screening: Headache, Joint & Muscle Aches, Weakness, Stomach Pain, Chills Review of Systems Constitutional: Reports: As per HPI. Denies: Chills, Fever, Malaise, Night sweats, Weakness, Weight change Eyes: Reports: As per HPI. Denies: Eye discharge, Eye pain, Photophobia, Vision change ENT: Reports: As per HPI. Denies: Congestion, Dental pain, Ear pain, Epistaxis, Hearing loss, Throat pain Respiratory: Reports: As per HPI. Denies: Cough, Dyspnea, Hemoptysis, Stridor, Wheezes Cardiovascular: Reports: As per HPI, Chest pain. Denies: Arrhythmia, Dyspnea on exertion, Edema, Murmurs, Orthopnea, Palpitations, Paroxysmal nocturnal dyspnea, Rheumatic Fever, Syncope Endocrine: Reports: As per HPI. Denies: Fatigue, Heat or cold intolerance, Polydipsia, Polyuria Gastrointestinal: Reports: As per HPI, Abdominal pain. Denies: Constipation, Diarrhea, Hematemesis, Hematochezia, Melena, Nausea, Vomiting Genitourinary: Reports: As per HPI. Denies: Abnormal menses, Discharge, Dyspareunia, Dysuria, Frequency, Hematuria, Incontinence, Retention, Urgency Musculoskeletal: Reports: As per HPI. Denies: Arthralgia, Back pain, Gout, Joint swelling, Myalgia, Neck pain Skin: Reports: As per HPI. Denies: Bruising, Change in color, Change in hair/nails, Lesions, Pruritus, Rash Neurological: Reports: As per HPI. Denies: Abnormal gait, Confusion, Headache, Numbness, Paresthesias, Seizure, Tingling, Tremors, Vertigo, Weakness Psychiatric: Reports: As per HPI. Denies: Anxiety, Auditory hallucinations, Depression, Homicidal thoughts, Suicidal thoughts, Visual hallucinations Hematological/Lymphatic: Reports: As per HPI. Denies: Anemia, Blood Clots, Easy bleeding, Easy bruising, Swollen glands Past Medical History - SOCIAL HISTORY Smoking Status: Never smoker Alcohol Use: None Drug Use: None - RESPIRATORY Hx Respiratory Disorders: Yes Hx Asthma: Yes Hx Sleep Apnea: Yes (mild) Hx of CPAP: No Comment:: Sports induced Asthma Highly allergic - CARDIOVASCULAR Hx Cardio Disorders: Yes Hx Hypertension: Yes (borderline) - NEURO Hx Neuro Disorders: Yes Hx Headaches: Yes (freq) Hx of Migraines: No Comment:: Narcolepsy - GI Hx GI Disorders: Yes Hx Abdominal Pain: Yes Hx Celiac Disease: No Hx Reflux: Yes Hx Irritable Bowel: Yes Hx Nausea/Vomiting: Yes Hx Wt Loss/Wt Gain: Yes Comment:: gallstones - Hx Genitourinary Disorders: No - ENDOCRINE Hx Endocrine Disorders: No - MUSCULOSKELETAL Hx Musculoskeletal Disorders: No Hx Arthritis: No - PSYCH Hx Psych Problems: Yes Hx Anxiety: Yes Hx Depression: Yes - HEMATOLOGY/ONCOLOGY Hx Hematology/Oncology Disorders: Yes Hx Anemia: Yes (2018) Family Medical History Any Significant Family History?: No Hx Cancer: Grandparents Hx Heart Disease: Grandparents H&P Meds/Allergies - Allergies Allergies: Allergies Allergy/AdvReac Type Severity Reaction Status Date / Time amoxicillin [From Augmentin] Allergy Severe HIVES Verified 12/21/18 21:54 azithromycin Allergy Severe HIVES Verified 12/21/18 21:54 cephalexin [From Keflex] Allergy Severe HIVES Verified 12/21/18 21:54 clavulanic acid Allergy Severe HIVES Verified 12/21/18 21:54 [From Augmentin] erythromycin base Allergy Severe HIVES Verified 12/21/18 21:54 grass pollen Allergy Severe ANAPHYLAXIS Verified 12/21/18 21:54 Penicillins Allergy Severe HIVES Verified 12/21/18 21:54 ragweed pollen Allergy Severe ANAPHYLAXIS Verified 12/21/18 21:54 sulfamethoxazole Allergy Severe HIVES Verified 12/21/18 21:54 [From Bactrim] trimethoprim [From Bactrim] Allergy Severe HIVES Verified 12/21/18 21:54 ciprofloxacin Allergy HIVES Verified 06/06/19 09:26 corn AdvReac Intermediate ABDOMINAL Verified 12/21/18 21:54 PAIN milk AdvReac Intermediate ABDOMINAL Verified 12/21/18 21:54 PAIN soy AdvReac Intermediate ABDOMINAL Verified 12/21/18 21:54 PAIN wheat AdvReac Intermediate ABDOMINAL Verified 12/21/18 21:54 PAIN Yeast AdvReac Intermediate ABDOMINAL Verified 12/21/18 21:54 PAIN - Home Medications Home Medications Medication Instructions Recorded Confirmed Last Taken Hydroxychloroquine Sulfate 200 mg PO DAILY 06/06/19 06/06/19 06/05/19 [Plaquenil] Sertraline HCl [Zoloft] 75 mg PO DAILY 06/06/19 06/06/19 06/06/19 Previous Rx's Medication Instructions Recorded Hyoscyamine Sulfate [Levsin-Sl] 0.25 mg SL Q8H PRN #15 tab.subl 12/22/18 - Active Medications Active Medications: Current Medications Acetaminophen (Tylenol 500mg Tab) 1,000 mg PO Q6H PRN PRN Reason: PAIN - MILD(1-4)/FEVER Last Admin: 06/06/19 17:31 Dose: 1,000 mg Documented by: Apixaban (Eliquis) 10 mg PO BID [facility] Last Admin: 06/06/19 21:33 Dose: 10 mg Documented by: Diphenhydramine HCl (Benadryl) 12.5 mg IVP Q6H PRN PRN Reason: NAUSEA Last Admin: 06/07/19 01:35 Dose: 12.5 mg Documented by: Hyoscyamine (Levsin Odt) 0.25 mg SL Q8H PRN PRN Reason: ABDOMINAL PAIN Promethazine HCl 6.25 mg/ (Sodium Chloride) 100.25 mls @ 200 mls/hr IVPB Q6H PRN PRN Reason: NAUSEA/VOMITING Last Infusion: 06/07/19 00:17 Dose: Infused Documented by: Linezolid (Zyvox) 600 mg in 300 mls @ 300 mls/hr IVPB Q12H [facility] Last Infusion: 06/07/19 02:17 Dose: Infused Documented by: Montelukast Sodium (Singulair) 10 mg PO DAILY [facility] Non-Formulary Medication (Modafinil [Provigil]) 200 mg PO DAILY [facility] Pantoprazole Sodium (Protonix) 40 mg PO BID [facility] Last Admin: 06/06/19 21:34 Dose: Not Given Documented by: Sertraline HCl (Zoloft) 75 mg PO DAILY [facility] Physical Exam - Vital Signs Vital Signs: Vital Signs - Last 24 Hrs Temp Pulse Pulse Resp BP BP Pulse Ox 06/07/19 06:00 99.4 F 91 H 16 124/67 98 06/07/19 01:43 99.9 F H 97 H 18 153/104 96 06/06/19 21:39 98.6 F 82 16 128/72 98 06/06/19 21:00 20 06/06/19 18:00 100.7 F H 93 H 17 137/82 100 06/06/19 17:44 87 22 06/06/19 16:11 91 H 16 132/81 100 06/06/19 16:10 99.6 F 87 17 146/80 100 06/06/19 13:00 85 16 128/74 100 06/06/19 11:41 88 16 126/67 99 06/06/19 09:20 99.5 F 99 H 18 132/81 99 - General General Appearance: Alert, Oriented x3, Cooperative, No acute distress Limitations: No limitations - Head Head exam: Normal inspection - Eye Eye exam: Normal appearance, PERRL, EOMI Pupils: Normal accommodation - ENT ENT exam: Normal exam, Mucous membranes moist, Normal external ear exam, Normal orophraynx Ear exam: Normal external inspection. negative: External canal tenderness Nasal Exam: Normal inspection. negative: Discharge, Sinus tenderness Mouth exam: Normal external inspection, Tongue normal Teeth exam: Normal inspection. negative: Dental caries Throat exam: Normal inspection. negative: Tonsillar erythema, Tonsillar exudate - Neck Neck exam: Normal inspection, Full ROM. negative: Tenderness - Respiratory Respiratory exam: Normal lung sounds bilaterally. negative: Respiratory distress - Cardiovascular Cardiovascular Exam: Regular rate, Normal rhythm, Normal heart sounds - GI/Abdominal GI/Abdominal exam: Soft, Normal bowel sounds, Tenderness - Rectal Rectal exam: Deferred - exam: Deferred - Extremities Extremities exam: Normal inspection, Full ROM, Normal capillary refill. negative: Tenderness - Back Back exam: Reports: Normal inspection, Full ROM. Denies: Muscle spasm, Rash noted, Tenderness - Neurological Neurological exam: Alert, CN II-XII intact, Normal gait, Oriented X3 - Psychiatric Psychiatric exam: Normal affect, Normal mood - Skin Skin exam: Dry, Intact, Normal color, Warm Results - Labs Result Diagrams: 06/07/19 09:18 06/06/19 09:35 Labs Last 24 Hours: Laboratory Results - last 24 hr 06/06/19 06/06/19 06/06/19 09:35 09:35 09:35 WBC 14.4 H RBC 4.61 Hgb 9.9 L Hct 34.1 L MCV 74.0 L MCH 21.4 L MCHC 29.0 L RDW 17.3 H Plt Count 416 H MPV 8.8 Neutrophils % 80.0 Band Neutrophils % 0.0 Eosinophils % Not Reportable Basophils % Not Reportable Absolute Neutrophils 11.53 Lymphocytes 13.0 L Monocytes 7.0 Basophils 0.0 ESR Eosinophil Count 0.0 PT INR APTT D-Dimer 1.53 H Sodium 139 Potassium 3.9 Chloride 101 Carbon Dioxide 24.0 Anion Gap 14.0 BUN 9 Creatinine 0.6 Estimated GFR > 60 Random Glucose 98 Lactic Acid Calcium 9.6 Total Bilirubin 0.30 AST 9 L ALT 20 Alkaline Phosphatase 108 H Total Protein 7.9 Albumin 4.5 Globulin 3.4 Albumin/Globulin Ratio 1.3 Lipase 51 Urine Color Urine Appearance Urine pH Ur Specific [place] Urine Protein Urine Glucose (UA) Urine Ketones Urine Blood Urine Nitrite Urine Bilirubin Urine Urobilinogen Ur Leukocyte Esterase Urine HCG, Qual 06/06/19 06/06/19 06/06/19 09:35 09:35 09:35 WBC RBC Hgb Hct MCV MCH MCHC RDW Plt Count MPV Neutrophils % Band Neutrophils % Eosinophils % Basophils % Absolute Neutrophils Lymphocytes Monocytes Basophils ESR 54 H Eosinophil Count PT 10.0 INR 1.0 APTT 29.6 D-Dimer Sodium Potassium Chloride Carbon Dioxide Anion Gap BUN Creatinine Estimated GFR Random Glucose Lactic Acid 1.1 Calcium Total Bilirubin AST ALT Alkaline Phosphatase Total Protein Albumin Globulin Albumin/Globulin Ratio Lipase Urine Color Urine Appearance Urine pH Ur Specific [place] Urine Protein Urine Glucose (UA) Urine Ketones Urine Blood Urine Nitrite Urine Bilirubin Urine Urobilinogen Ur Leukocyte Esterase Urine HCG, Qual 06/06/19 09:51 WBC RBC Hgb Hct MCV MCH MCHC RDW Plt Count MPV Neutrophils % Band Neutrophils % Eosinophils % Basophils % Absolute Neutrophils Lymphocytes Monocytes Basophils ESR Eosinophil Count PT INR APTT D-Dimer Sodium Potassium Chloride Carbon Dioxide Anion Gap BUN Creatinine Estimated GFR Random Glucose Lactic Acid Calcium Total Bilirubin AST ALT Alkaline Phosphatase Total Protein Albumin Globulin Albumin/Globulin Ratio Lipase Urine Color Yellow Urine Appearance Clear Urine pH 7.0 Ur Specific [place] <= 1.005 Urine Protein Negative Urine Glucose (UA) Negative Urine Ketones Negative Urine Blood Negative Urine Nitrite Negative Urine Bilirubin Negative Urine Urobilinogen 0.2 Ur Leukocyte Esterase Negative Urine HCG, Qual Negative - Imaging and Cardiology CT scan - chest Status: Report reviewed VTE H&P Assessment - Risk for VTE Risk for VTE: Yes Risk Level: High Risk Assessment Date: 06/07/19 Risk Assessment Time: 08:36 VTE Orders Placed or Will Be Placed: No VTE Reason for No Prophylaxis: Contraindicated (pt on eliquis for current PE) Plan - Detailed Diagnosis and Plan (1) Pulmonary embolism Current Visit: Yes Status: Acute Qualifiers: Pulmonary embolism type: other Chronicity: acute Acute cor pulmonale presence: without acute cor pulmonale Qualified Code(s): I26.99 - Other pulmonary embolism without acute cor pulmonale Base Code: I26.99 - OTHER PULMONARY EMBOLISM WITHOUT ACUTE COR PULMONALE Comment: 06/06/19 -CTA reveals PE RLL -started Eliquis 10mg BID for 7 days -no know risk factors, pt to f/u PCP for futher evaluation (2) Pneumonia Current Visit: Yes Status: Acute Qualifiers: Pneumonia type: due to unspecified organism Laterality: right Lung location: lower lobe of lung Qualified Code(s): J18.1 - Lobar pneumonia, unspecified organism Base Code: J18.9 - PNEUMONIA, UNSPECIFIED ORGANISM Comment: 06/06/19 -WBC elevate 14.4 -Pain with inspiration right side -CTA shows PNA, reported antibiotic allergies numerous, started Zyvox 600mg BID and tolerating well (3) Pleural effusion Current Visit: Yes Status: Acute Base Code: J90 - PLEURAL EFFUSION, NOT ELSEWHERE CLASSIFIED Comment: 06/06/19 -monitor vitals -maintain sat >92% (4) Full code status Current Visit: Yes Status: Acute Base Code: Z78.9 - OTHER SPECIFIED HEALTH STATUS Comment: 06/06/19 full code (5) DVT prophylaxis Current Visit: Yes Status: Acute Base Code: Z29.9 - ENCOUNTER FOR PROPHYLACTIC MEASURES, UNSPECIFIED Comment: 06/06/19 -high risk as pt already has PE from unknown cause -Eliquis 10mg BID
[2019-06-07 09:29] LABS: ABSOLUTE NEUTROPHIL COUNT 10.92; HEMATOCRIT 28.5 % (35.0-47.0); HEMOGLOBIN 8.2 gm/dl (11.6-16.0); MEAN CELL VOLUME 73.6 fl (81-97); MEAN CORPUSCULAR HGB CONC 28.8 g/dl (32-36); MEAN PLATELET VOLUME 8.8 fl (7.4-10.4); PLATELET COUNT 338 K/uL (130-400); RED BLOOD COUNT 3.87 M/uL (3.80-5.40); RED CELL DISTRIBUTION WIDTH 16.9 % (11.5-14.5); WHITE BLOOD COUNT W/O DIFF 13.8 K/uL (4.2-12.2)
[2019-06-07 09:32] LABS: MEAN CORPUSCULAR HEMOGLOBIN 21.1 pg (27-33)
[2019-06-07] MEDS ORDERED: SERTRALINE HCL 50 MG TABLET PO SCH (10:00)
[2019-06-07] MEDS ORDERED: MODAFINIL 200 MG PO SCH (10:00)
[2019-06-07] MEDS: PANTOPRAZOLE SODIUM 40 MG TABLET PO SCH (10:06)
[2019-06-07] MEDS: MONTELUKAST SODIUM 10MG TABLET PO SCH (10:06)
[2019-06-07] MEDS: APIXABAN 5MG TABLET PO SCH ×2 (10:06→21:42)
[2019-06-07 11:13] LABS: HYPOCHROMIA 2+
[2019-06-07 11:40] LABS: BLOOD UREA NITROGEN 9 mg/dL (6-20); CREATININE 0.6 mg/dL (0.5-0.9); EST GLOMERULAR FILTRATION RATE > 60 mL/min
[2019-06-07 11:43] LABS: GLUCOSE,RANDOM 102 mg/dL (74-109)
[2019-06-07] MEDS: FLUTICASONE PROPIONATE 50MCG NASAL 16 GM BTL SCH ×2 (14:02→21:46)
[2019-06-07] MEDS: ACETAMINOPHEN 500 MG TABLET PO PRN (15:22)
[2019-06-07] MEDS: ONDANSETRON HCL IV 4 MG/2 ML VIAL IVP PRN ×2 (17:17→23:02)
[2019-06-07] MEDS: OMEPRAZOLE PO SCH (21:46)
[2019-06-07] MEDS: SODIUM BICARBONATE PO SCH (21:46)
[2019-06-07] MEDS ORDERED: SERTRALINE 75 MG PO SCH (22:00)
[2019-06-07] MEDS: LINEZOLID 600 MG TABLET PO SCH (23:10)
--- NOTE | 2019-06-08 08:19 | US VENOUS DOPPLER REPORT ---
EXAM: BILATERAL LOWER EXTREMITY VENOUS DOPPLER ULTRASOUND HISTORY: PULMONARY EMBOLUS. TECHNIQUE: Kong scale, color Doppler and Duplex Doppler evaluation of the deep venous structures of the right and left lower extremities performed from the level of the external iliac veins through the calf veins. Comparison: No prior imaging of the lower extremities was available for comparison. FINDINGS: On the right, the external iliac, common femoral, deep femoral, greater saphenous, superficial femoral, and popliteal veins are anechoic and completely compressible throughout. Normal venous waveforms are noted at all levels and these waveforms are augmentable. The peroneal, posterior tibial, and anterior tibial veins are without evidence of thrombus with kong scale and color Doppler imaging. On the left, the external iliac vein, common femoral vein, deep femoral vein, greater saphenous vein, superficial femoral vein, and popliteal vein are anechoic and completely compressible throughout. Normal venous waveforms are noted at all levels and these waveforms are augmentable. The peroneal, posterior tibial, and anterior tibial veins are without evidence of thrombus with kong scale and color Doppler imaging. IMPRESSION: NO EVIDENCE OF DEEP VENOUS THROMBOSIS WITHIN EITHER LOWER EXTREMITY. JOB NUMBER: [id number] [facility]
[2019-06-08] MEDS: ACETAMINOPHEN 500 MG TABLET PO PRN (08:36)
[2019-06-08 08:59] LABS: HEMATOCRIT 29.8 % (35.0-47.0); HEMOGLOBIN 8.5 gm/dl (11.6-16.0); MEAN CELL VOLUME 75.3 fl (81-97); MEAN CORPUSCULAR HGB CONC 28.5 g/dl (32-36); MEAN PLATELET VOLUME 8.6 fl (7.4-10.4); PLATELET COUNT 356 K/uL (130-400); RED BLOOD COUNT 3.96 M/uL (3.80-5.40); RED CELL DISTRIBUTION WIDTH 17.2 % (11.5-14.5); WHITE BLOOD COUNT W/O DIFF 9.8 K/uL (4.2-12.2)
[2019-06-08 09:18] LABS: MEAN CORPUSCULAR HEMOGLOBIN 21.4 pg (27-33)
[2019-06-08 09:44] LABS: HYPOCHROMIA 2+; PLATELET ESTIMATE INCREASED (NORMAL); ROULEAU 1+
--- NOTE | 2019-06-08 10:25 | Discharge Summary ---
Providers Discharge Summary Date: 06/08/19 Date of admission: 06/06/19 16:00 Expected Date of Discharge: 06/08/19 Attending physician: GENEVA ANNE Primary care physician: Oscar Reynolds D.O. Physical Exam - Vital Signs Vital Signs: Vital Signs - Last 24 Hrs Temp Pulse Resp BP Pulse Ox 06/08/19 09:10 98.3 F 80 16 127/70 95 06/08/19 06:00 98.9 F 75 16 125/78 97 06/07/19 21:18 98.7 F 78 16 122/78 100 06/07/19 21:00 16 06/07/19 14:00 99.1 F 101 H 16 145/74 96 06/07/19 12:00 99.0 F 102 H 16 162/86 98 - General General Appearance: Alert, Oriented x3, Cooperative, No acute distress Limitations: No limitations - Head Head exam: Normal inspection - Eye Eye exam: Normal appearance, PERRL, EOMI Pupils: Normal accommodation - ENT ENT exam: Normal exam, Mucous membranes moist, Normal external ear exam, Normal orophraynx, Other (fluid noted behind right TM, no s/s infection) Ear exam: Normal external inspection. negative: External canal tenderness Nasal Exam: Normal inspection. negative: Discharge, Sinus tenderness Mouth exam: Normal external inspection, Tongue normal Teeth exam: Normal inspection. negative: Dental caries Throat exam: Normal inspection. negative: Tonsillar erythema, Tonsillar exudate - Neck Neck exam: Normal inspection, Full ROM. negative: Tenderness - Respiratory Respiratory exam: Normal lung sounds bilaterally. negative: Respiratory distress - Cardiovascular Cardiovascular Exam: Regular rate, Normal rhythm, Normal heart sounds - GI/Abdominal GI/Abdominal exam: Soft, Normal bowel sounds, Tenderness - Rectal Rectal exam: Deferred - exam: Deferred - Extremities Extremities exam: Normal inspection, Full ROM, Normal capillary refill. negative: Tenderness - Back Back exam: Reports: Normal inspection, Full ROM. Denies: Muscle spasm, Rash noted, Tenderness - Neurological Neurological exam: Alert, CN II-XII intact, Normal gait, Oriented X3 - Psychiatric Psychiatric exam: Normal affect, Normal mood - Skin Skin exam: Dry, Intact, Normal color, Warm Hospitalization - Hospitalization Admission Diagnosis: pulmonary embolism, pneumonia, pleural effusion - Problem List/Discharge Diagnosis (1) Pulmonary embolism Current Visit: Yes Status: Acute Discharge Diagnosis: Pulmonary embolism type: other Chronicity: acute Acute cor pulmonale presence: without acute cor pulmonale Qualified Code(s): I26.99 - Other pulmonary embolism without acute cor pulmonale Base Code: I26.99 - OTHER PULMONARY EMBOLISM WITHOUT ACUTE COR PULMONALE Comment: 06/08/19 -pt denies any symptoms, wants to go home today -denies CP, nausea, and is eating without difficulty -tolerating Eliquis 10mg BID 06/07/19 -CTA reveals PE RLL -started Eliquis 10mg BID for 7 days -no know risk factors, pt to f/u PCP for futher evaluation (2) Pneumonia Current Visit: Yes Status: Acute Discharge Diagnosis: Pneumonia type: due to unspecified organism Laterality: right Lung location: lower lobe of lung Qualified Code(s): J18.1 - Lobar pneumonia, unspecified organism Base Code: J18.9 - PNEUMONIA, UNSPECIFIED ORGANISM Comment: 06/08/19 -pain controlled with tylenol -tolerating Zyvox 600mg BID PO -D/C with 6 more days 06/07/19 -WBC elevate 14.4 -Pain with inspiration right side -CTA shows PNA, reported antibiotic allergies numerous, started Zyvox 600mg BID and tolerating well (3) Pleural effusion Current Visit: Yes Status: Acute Base Code: J90 - PLEURAL EFFUSION, NOT ELSEWHERE CLASSIFIED Comment: 06/08/19 -VSS, sat 95% RA 06/07/19 -monitor vitals -maintain sat >92% (4) Full code status Current Visit: Yes Status: Acute Base Code: Z78.9 - OTHER SPECIFIED HEALTH STATUS Comment: 06/07/19 full code (5) DVT prophylaxis Current Visit: Yes Status: Acute Base Code: Z29.9 - ENCOUNTER FOR PROPHYLACTIC MEASURES, UNSPECIFIED Comment: 06/08/19 -high risk as pt already has PE from unknown cause -Eliquis 10mg BID - Hospitalization Course Disposition: Home, Self-Care Hospital Course: 06/05/19 Pt presented to [facility] ER for right upper quad abd pain/right lower chest pain. worsening with inspiration. Denies smoking, BC, recent travel or surgeries. PMH autoimmune issues (RA?), allergies, food sensitivities Temp 99.5, HR 99, BP 132/81. RR 18, 99% RA. WBC 14.4, Hgb 9.9, Hct 34.1, MCV 74, MCHC 29, Plt 416 ESR 54 D-dimer 1.53 PT 10, INR 1, aPTT 29.6 Na 139, K 3.9, Cl 101, CO2 24, Anion Gap 14, BUN 9, Cr 0.6, GFR>60, glucose 98, LFTs wnl, Lactic Acid 1.1, Lipase 51 UA negative, UP neg CTA shows PE, PNA, and pleural effusion, Hestia Criteria 1 r/t concurrent PNA, admission obs Eliquis 10mg BID started for PE tx, will continue for 7 days and then transition to 5mg BID. Pt reports numerous antibiotic allergies, started Zyvox 600mg IVPB BID for secondary PNA. 06/07/19 pt resting in bed, no acute distress, mother and father at bedside. Pt up to restroom with no distress. Lungs CTA, reports inspiration pain has decreased since addition of abx. Pt has nausea since admission, denies nausea prior to admission. Currently eating apple sauce with no difficulty and has PRN nausea meds available. pt is tolerating anticoagulation and IV abx but had fever last night. Continue IV ABX until nausea decreased and PO intake improves. Pt req excendrin for HARRIS, declined this r/t ASA content and discouraged all NSAID use while on Eliquis. ALDO US ordered to r/o DVTs as pt reports she was on a plane within the past 30 days. Flew to and from [facility], arriving home 05/13/19. Denies calf pain since trip. pt needs to be fever free for 24 hours for d/c, f/u PCP. MICR indicates pt has not had PNA vaccination, pt to f/u with PCP. PCP Gail Procedures: Imaging and X-Rays 06/06/19 10:29 CHEST CTA w contrast [CTA] Stat 06/07/19 09:49 VENOUS DOPPLER LOWER EXT ALDO [US] Stat Cardiology Procedures 06/06/19 16:07 Barber Stylist .Continuous Abnormal Labs: Abnormal Lab Results 06/06/19 06/06/19 06/06/19 Range/Units 09:35 09:35 09:35 WBC 14.4 H (4.2-12.2) K/uL Hgb 9.9 L (11.6-16.0) gm/dl Hct 34.1 L (35.0-47.0) % MCV 74.0 L (81-97) fl MCH 21.4 L (27-33) pg MCHC 29.0 L (32-36) g/dl RDW 17.3 H (11.5-14.5) % Plt Count 416 H (130-400) K/uL Lymphocytes 13.0 L (16-45) % ESR (0-20) mm/hr D-Dimer 1.53 H (0-0.59) mg/L FEU AST 9 L (10.0-35.0) U/L Alkaline Phosphatase 108 H (35-104) U/L 06/06/19 06/07/19 06/08/19 Range/Units 09:35 09:18 08:23 WBC 13.8 H (4.2-12.2) K/uL Hgb 8.2 L 8.5 L (11.6-16.0) gm/dl Hct 28.5 L 29.8 L (35.0-47.0) % MCV 73.6 L 75.3 L (81-97) fl MCH 21.1 L 21.4 L (27-33) pg MCHC 28.8 L 28.5 L (32-36) g/dl RDW 16.9 H 17.2 H (11.5-14.5) % Plt Count (130-400) K/uL Lymphocytes (16-45) % ESR 54 H (0-20) mm/hr D-Dimer (0-0.59) mg/L FEU AST (10.0-35.0) U/L Alkaline Phosphatase (35-104) U/L Condition at Discharge: (1) Good Discharge Medications - Discharge Medications Prescriptions: Apixaban [Eliquis] 10 mg PO BID 10 Days #24 tablet Ondansetron [Zofran Odt] 4 mg PO Q8H 8 Days #24 tab.rapdis Linezolid [Zyvox] 600 mg PO BID 6 Days #12 tablet Home Medications: Ambulatory Orders Dextroamphetamine/Amphetamine [Adderall 20 mg Tablet] 20 mg PO DAILY PRN 03/13/17 [Last Taken 12/14/17] Modafinil [Provigil] 200 mg PO DAILY 03/13/17 [Last Taken 06/06/19] Montelukast Sodium [Singulair] 10 mg PO DAILY 03/13/17 [Last Taken 06/06/19] Omeprazole/Sodium Bicarbonate [Zegerid 40 mg Capsule] 40 mg PO BID 03/13/17 [Last Taken 06/06/19] Hyoscyamine Sulfate [Levsin-Sl] 0.25 mg SL Q8H PRN #15 tab.subl 12/22/18 [Last Taken 06/06/19] Hydroxychloroquine Sulfate [Plaquenil] 200 mg PO DAILY 06/06/19 [Last Taken 06/05/19] Sertraline HCl [Zoloft] 75 mg PO DAILY 06/06/19 [Last Taken 06/06/19] Apixaban [Eliquis] 10 mg PO BID 10 Days #24 tablet 06/08/19 [Last Taken Unknown] Linezolid [Zyvox] 600 mg PO BID 6 Days #12 tablet 06/08/19 [Last Taken Unknown] Ondansetron [Zofran Odt] 4 mg PO Q8H 8 Days #24 tab.rapdis 06/08/19 [Last Taken Unknown] Discharge Plan - Discharge Instructions Activity at Discharge: Increase Activity as Tolerated Diet at Discharge: Regular Diet Additional Instructions: Appointment with Dr. Reynolds's PA iMssy Fletcher 06/09 at 1:30PM Go back to ER for chest pain, difficulty breathing, unable to hold down anti biotics or blood thinners. Quality Measures - Quality Measures Quality Measures: Documentation of Current Medications in Medical Record, Screening for High Blood Pressure and F/U Documented - Current Medications Quality Measure: Measure #130: Documentation of Current Medications Documentation of Current Medications: <Current Medications Documented/Reviewed> [G8427] - Blood Pressure Screening Quality Measure: Screening for High Blood Pressure and Follow-Up Documented Does Patient Have Any of the Following: No Blood Pressure Classification: Pre-Hypertensive BP Reading Systolic Measurement: 132 Diastolic Measurement: 81 Screening for High Blood Pressure: < Pre-Hypertensive BP, F/U Documented > [G895 0] Pre-Hypertensive Follow-up Interventions: Referral to alternative/primary care provider. - Elder Abuse Suspicion Index EASI Reference Information: Marleny CARUSO, Jeffery C, Kyle D, Cornelio London.Development and validation of a tool to assist physicians identification of elder abuse: The Elder Abuse Suspicion Index (EASI ). Journal of Elder Abuse and Neglect, 2008; 20 (3): 276-300.
[2019-06-08] MEDS: ONDANSETRON HCL IV 4 MG/2 ML VIAL IVP PRN (10:37)
[2019-06-08] MEDS: APIXABAN 5MG TABLET PO SCH (10:38)
[2019-06-08] MEDS: MONTELUKAST SODIUM 10MG TABLET PO SCH (10:38)
[2019-06-08] MEDS: LINEZOLID 600 MG TABLET PO SCH (10:39)
[2019-06-08] MEDS: FLUTICASONE PROPIONATE 50MCG NASAL 16 GM BTL SCH (10:39)
[2019-06-08] MEDS: SODIUM BICARBONATE PO SCH (10:39)
[2019-06-08] MEDS: OMEPRAZOLE PO SCH (10:39)
== END 2019-06-08 11:50 | disposition home or self-care (01) ==
LOC: ER 09:14 → MEDSURG 16:00 → INTOOBSV 16:00
PROVIDERS: ADMIT Internal Medicine; ATTEND Internal Medicine
DX: I26.99 Other pulmonary embolism without acute cor pulmonale (principal); J18.1 Lobar pneumonia, unspecified organism; J90 Pleural effusion, not elsewhere classified; R50.9 Fever, unspecified; I10 Essential (primary) hypertension; K21.9 Gastro-esophageal reflux disease without esophagitis; K58.9 Irritable bowel syndrome, unspecified; J45.909 Unspecified asthma, uncomplicated; G47.419 Narcolepsy without cataplexy; Z90.49 Acquired absence of other specified parts of digestive tract
CPT/HCPCS: 71275; 80048; 80053; 81003; 81025; 83605; 83690; 85027; 85379; 85610; 85651; 85730; 93970; 94010; 96365; 96366; 96375; 99217; 99220; 99285; J1200; J1885; J2405; J2550; J7030